=== PATIENT | female | born 1935 | race African-American/Black ===

== ENCOUNTER 2022-04-20 16:28 | Inpatient (IN) | payer MEDICAID, MEDICARE ==
[~2022-04-20] VITALS: Ht 165.1 cm; Wt 99.3 kg
[2022-04-20 16:28] VITALS: BP_SYST 176
[2022-04-20 17:06] LABS: BASOPHILS # (AUTO) 0.1 K/uL (0.0-0.2); BASOPHILS % (AUTO) 1.1 % (0.0-2.0); EOSINOPHILS # (AUTO) 0.1 K/uL (0.0-0.4); EOSINOPHILS % (AUTO) 1.5 % (0.0-4.0); HEMATOCRIT 38.5 % (36-48); HEMOGLOBIN 12.8 g/dL (12.0-16.0); LYMPHOCYTES # (AUTO) 3.3 K/uL (1.0-5.5); LYMPHOCYTES % (AUTO) 36.2 % (20.5-51.5); MEAN CORPUSCULAR HEMOGLOBIN 29 pg (27-31); MEAN CORPUSCULAR HGB CONC 33 % (32-36); MEAN CORPUSCULAR VOLUME 86 fL (79.0-98.0); MONOCYTES # (AUTO) 0.5 K/uL (0.0-1.0); MONOCYTES % (AUTO) 5.5 % (1.7-9.3); NEUTROPHILS # (AUTO) 5.1 K/uL (1.8-7.7); NEUTROPHILS % (AUTO) 55.7 % (40.0-70.0); PLATELET COUNT (AUTO) 242 K/uL (130-430); RED BLOOD CELL COUNT(AUTO) 4.47 MIL/uL (4.2-6.2); RED CELL DISTRIBUTION WIDTH 14.9 % (9.0-15.0); WHITE BLOOD COUNT (AUTO) 9.1 K/uL (4.8-10.8)
[2022-04-20 17:12] LABS: ANION GAP 10 (5-15); CALCIUM 8.1 mg/dL (8.4-11.0); CHLORIDE 106 mmol/L (98-107); GLUCOSE 135 mg/dL (70-99); POTASSIUM 3.6 mmol/L (3.5-5.1); SODIUM SERUM 142 mmol/L (136-145); UREA NITROGEN, BLOOD 17 mg/dL (8-21)
[2022-04-20] MEDS ORDERED: ASPIRIN 325 MG TABLET PO ONE (17:15)
[2022-04-20] MEDS ORDERED: ASPIRIN 325 MG TABLET ONE (17:20)
[2022-04-20 17:21] LABS: ALANINE AMINOTRANSFERASE 15 U/L (12-78); ALBUMIN 2.8 g/dL (3.4-4.8); ASPARTATE AMINOTRANSFERASE 17 U/L (10-37); TOTAL BILIRUBIN 0.6 mg/dL (0.0-1.0)
[2022-04-20] MEDS ORDERED: LOSA100T3 PO (17:24)
[2022-04-20] MEDS ORDERED: FURO-149 PO (17:24)
[2022-04-20] MEDS ORDERED: TOPXL100 PO (17:24)
[2022-04-20] MEDS ORDERED: LEVO112T5 PO (17:24)
[2022-04-20] MEDS ORDERED: ASA81 PO (17:24)
[2022-04-20] MEDS ORDERED: ROPI1TAB6 PO (18:18)
[2022-04-20] MEDS ORDERED: OMEP20CA4 PO (18:18)
[2022-04-20] MEDS ORDERED: CHOL100034 PO (18:18)
[2022-04-20] MEDS ORDERED: NAPR220C15 PO (18:18)
[2022-04-20] MEDS ORDERED: CALC1CAP28 PO (18:18)
[2022-04-20] MEDS ORDERED: SIMV40TA2 PO (18:18)
[2022-04-20] MEDS ORDERED: ASPIRIN 81 MG TABLET(ECOTRIN) PO ONE (18:30)
[2022-04-20 21:05] VITALS: BP_SYST 176
[2022-04-20] MEDS: METOPROLOL SUCCINATE 50 MG TAB.SR.24H (TOPROL XL) PO SCH (21:30)
[2022-04-20] MEDS ORDERED: hydrALAZINE HCL 20 MG/ML VIAL IVP PRN (23:15)
[2022-04-21 03:22] VITALS: BP_SYST 169
[2022-04-21 08:00] VITALS: BP_SYST 150
[2022-04-21] MEDS: ATORVASTATIN 20 MG TABLET PO SCH (08:27)
[2022-04-21] MEDS: LEVOTHYROXINE SODIUM 0.112 MG TABLET PO SCH (08:27)
[2022-04-21] MEDS: PANTOPRAZOLE SODIUM 40 MG TAB PO SCH (08:27)
[2022-04-21] MEDS: ASPIRIN 81 MG TAB.CHEW PO SCH (08:27)
[2022-04-21] MEDS: METOPROLOL SUCCINATE 50 MG TAB.SR.24H (TOPROL XL) PO SCH (08:28)
[2022-04-21] MEDS ORDERED: SODIUM BICARBONATE 8.4% VIAL 50 MEQ in 0.45% NACL 1,000 ML IV SCH (10:00)
[2022-04-21 12:00] VITALS: BP_SYST 148
[2022-04-21] MEDS ORDERED: ONDANSETRON HCL 4 MG/2 ML VIAL IVP PRN (12:30)
[2022-04-21] MEDS ORDERED: iohexoL 300 mgI/mL, 150 ML INFUS..BTL IV ONE (12:51)
[2022-04-21 13:59] LABS: CHOLESTEROL 185 mg/dL (<200); HDL CHOLESTEROL 37 mg/dL (>55); LDL CHOLESTEROL 107 mg/dL (<100); TRIGLYCERIDES 178 mg/dL (30-150)
[2022-04-21 16:00] VITALS: BP_SYST 136
[2022-04-21 20:12] VITALS: BP_SYST 152
[2022-04-21] MEDS: ACETYLCYSTEINE 20% 800 MG/4 ML VIAL (ORAL) PO SCH (20:28)
[2022-04-22 01:40] VITALS: BP_SYST 135
[2022-04-22 08:02] VITALS: BP_SYST 176
[2022-04-22] MEDS: LEVOTHYROXINE SODIUM 0.112 MG TABLET PO SCH (08:35)
[2022-04-22] MEDS: PANTOPRAZOLE SODIUM 40 MG TAB PO SCH (08:35)
[2022-04-22] MEDS: METOPROLOL SUCCINATE 50 MG TAB.SR.24H (TOPROL XL) PO SCH (08:36)
[2022-04-22] MEDS: ASPIRIN 81 MG TAB.CHEW PO SCH (08:37)
[2022-04-22] MEDS: ATORVASTATIN 20 MG TABLET PO SCH (08:37)
[2022-04-22 10:17] LABS: ANION GAP 6 (5-15); CALCIUM 8.2 mg/dL (8.4-11.0); CHLORIDE 107 mmol/L (98-107); CREATININE 1.13 mg/dL (0.55-1.30); GLUCOSE 96 mg/dL (70-99); POTASSIUM 3.6 mmol/L (3.5-5.1); SODIUM SERUM 141 mmol/L (136-145); UREA NITROGEN, BLOOD 15 mg/dL (8-21)
[2022-04-22] MEDS ORDERED: LEVOTHYROXINE SODIUM 0.112 MG TABLET PO SCH (10:24)
[2022-04-22] MEDS ORDERED: LOSARTAN POTASSIUM 25 MG TABLET PO ONE (13:00)
[2022-04-22] MEDS: ACETYLCYSTEINE 20% 800 MG/4 ML VIAL (ORAL) PO SCH (15:09)
[2022-04-22 15:38] VITALS: BP_SYST 155
[2022-04-22] MEDS ORDERED: NAPROXEN 250 MG TABLET PO ONE (16:15)
[2022-04-22 16:16] VITALS: BP_SYST 155
[2022-04-23] MEDS ORDERED: LOSARTAN POTASSIUM 25 MG TABLET PO SCH (09:00)
[2022-04-23] MEDS ORDERED: FUROSEMIDE 20 MG TABLET PO SCH (09:00)
== END 2022-04-22 17:50 | disposition home or self-care (01) | DRG 47 ==
LOC: SED 16:28 → STU 18:28
PROVIDERS: ADMIT Family Medicine; ATTEND Family Medicine
DX: G45.9 Transient cerebral ischemic attack, unspecified (principal); R47.01 Aphasia; E03.9 Hypothyroidism, unspecified; Z20.822 Contact with and (suspected) exposure to COVID-19; E78.5 Hyperlipidemia, unspecified; I12.9 Hypertensive chronic kidney disease with stage 1 through stage 4 chronic kidney disease, or unspecified chronic kidney disease; N18.30 Chronic kidney disease, stage 3 unspecified; G25.81 Restless legs syndrome; Z88.0 Allergy status to penicillin
CPT/HCPCS: 36415; 70450-TC; 70496; 70498; 71045; 76376; 80048; 80053; 80061; 83880; 84484; 85025; 85379; 93005; 93970; 99291; G0378; J0360; Q9967